=== PATIENT | female | born 1970 | race Caucasian/White ===

== ENCOUNTER 2018-01-17 17:18 | Inpatient (IN) | payer OTHER ==
[~2018-01-17] VITALS: Ht 172.7 cm; Wt 62.6 kg
[~2018-01-17 17:18] MED LIST: CIPRO 500MG TA500 MG PO; FLAGYL 25O MG250 M1 PO; METFORMIN ER500 MG PO; METFORMIN HCL500 M4 PO; METRONIDAZOLE500 MG PO; MONTELUKAST SOD10 MG PO; MULTI VITAMINS1 TAB PO; PERCOCET 325 MG1 TA2 PO; PERCOCET 5-3251 EACH PO; SYNTHROID25 MCG PO; VITAMIN D250000 UNIT PO; ZOFRAN4 M1 SL; ZYRTEC10 MG PO
[2018-01-17 18:38] LABS: ABSOLUTE BASOPHIL COUNT 0 /CUMM (0.0-0.2); ABSOLUTE EOSINOPHIL COUNT 0.1 /CUMM (0.0-0.7); ABSOLUTE GRANULOCYTE CT 6.5 /CUMM (1.4-6.5); ABSOLUTE LYMPH COUNT 2.5 /CUMM (1.2-3.4); ABSOLUTE MONOCYTE COUNT 0.7 /CUMM (0.10-0.60); BASOPHIL % 0.4 % (0.0-2.0); EOSINOPHIL % 0.8 % (0-5); GRANULOCYTE % 66.2 % (42.2-75.2); HEMATOCRIT 41.5 % (37-47); MEAN CORPUSCULAR HGB 29.4 PG (27.0-31.0); MEAN CORPUSCULAR HGB CONC 34.5 G/DL (33.0-37.0); MEAN CORPUSCULAR VOLUME 85.1 FL (81.0-99.0); MEAN PLATELET VOLUME 8.4 FL (7.4-10.4); PLATELET COUNT 307 /CUMM (130-400); RBC DISTRIBUTION WIDTH 13.3 % (11.5-14.5); RED BLOOD CELL CT 4.88 /CUMM (4.20-5.40); WHITE BLOOD CELL COUNT 9.8 /CUMM (4.8-10.8)
--- NOTE | 2018-01-17 19:28 | CT SCAN REPORT ---
EXAMINATION: CT ABDOMEN AND PELVIS WITH CONTRAST CLINICAL INFORMATION: Left lower quadrant pain COMPARISON: None. TECHNIQUE: Multidetector volumetric imaging was performed from the superior aspect of the liver through the pubic symphysis following administration of 95 ml of Optiray 320 Sagittal and coronal reformatted images were obtained on the technologist workstation. DLP: 630 mGy-cm FINDINGS: LUNG BASES: Minimal dependent atelectasis LIVER, GALLBLADDER, AND BILIARY TREE: The liver is normal in size, shape, and attenuation. No focal hepatic lesion or biliary ductal dilatation is present. The gallbladder is unremarkable with no evidence of radiopaque gallstones, gallbladder wall thickening, or obvious pericholecystic inflammatory changes. PANCREAS: Unremarkable. SPLEEN: Unremarkable. ADRENAL GLANDS: Unremarkable. KIDNEYS AND URETERS: The kidneys are normal in size, shape, and attenuation. No hydronephrosis, hydroureter, or calculi seen. No perinephric stranding. BLADDER: Unremarkable. GASTROINTESTINAL TRACT: There is scattered colonic diverticulosis more so in the sigmoid colon. There is mild pericolonic inflammatory change along the proximal sigmoid colon suggesting focal diverticulitis in this area. No obstructive changes. No discrete drainable collection. The appendix is likely surgically absent. Visualized small bowel unremarkable. ABDOMINAL WALL: No significant hernia is appreciated. LYMPHOVASCULAR STRUCTURES: No lymphadenopathy. The aorta is unremarkable. PELVIC VISCERA: Surgically absent OSSEOUS STRUCTURES: Degenerative changes in the lower lumbar spine IMPRESSION: Scattered colonic diverticulosis more so in the sigmoid colon. There is new focal pericolonic inflammatory changes along the proximal sigmoid colon suggesting mild focal diverticulitis. No discrete pericolonic abscess or drainable collection. No free air.
--- NOTE | 2018-01-17 19:32 | ED GI/GU/ABDOMINAL COMPLAINT ---
History of Present Illness General Chief Complaint: Abdominal Pain/Flank Pain Stated Complaint: LEFT SIDE STOMACH PAIN Source: patient, old records Exam Limitations: no limitations Vital Signs & Intake/Output Vital Signs & Intake/Output Vital Signs Date Time Temp Pulse Resp B/P B/P Pulse O2 O2 Flow FiO2 Mean Ox Delivery Rate 01/17 1726 98.5 98 16 115/82 97 Room Air Allergies Coded Allergies: NO KNOWN ALLERGIES (07/14/16) Reconcile Medications Ergocalciferol (Vitamin D2) (Vitamin D2) 50,000 UNIT CAPSULE 1 CAP PO Q30D SUPPLEMENT (Reported) Levothyroxine Sodium (Synthroid) 25 MCG TABLET 1 TAB PO DAILY AC THYROID ( Reported) Metformin HCl (Metformin HCl ER) 500 MG TAB.ER.24H 1 TAB PO DAILY DIABETES ( Reported) Oxycodone HCl/Acetaminophen (Percocet 5-325 MG Tablet) 1 EACH TABLET 1 TAB PO Q4P PRN PAIN SCALE 1-3 Triage Note: PT STATES SHE IS HAVING LEFT LOWER ABD PAIN SINCE LAST DAVIN. PT STATES SHE HAS NAUSEA BUT HAS NOT VOMITED. PT WITH HX OF DIVERTICULITIS Triage Nurses Notes Reviewed? yes ? N Is pt currently ? No HPI: Patient states that all day yesterday she just did not feel well and was anorexic. Yesterday evening she developed a pain in her left lower quadrant. Patient cannot really describe the pain other than stating that it hurts. The pain has kept her up all night and then lasted throughout the day. She states that earlier today the pain started to feel a little bit better but did not go away so she tried to eat something but approximately 10 minutes after eating the pain came back and was worse than it was even yesterday. Currently the pain is 10 out of 10. Patient states that any movement and especially walking makes the pain worse. The pain also worsens when she pushes anywhere in her abdomen. Patient has noticed that when she pushes on her abdomen the pain intensifies in the left lower quadrant. She feels very nauseous but has not vomited. There is no diarrhea. She had a normal bowel movement yesterday. She denies any dysuria. There are no fevers or chills. Patient was admitted once before for diverticulitis and states that this pain is reminiscent of that. Past History Travel History Traveled to [place] past 21 day No Medical History Any Pertinent Medical History? 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 No Review of Systems Review of Systems Constitutional: Reports: no symptoms. EENTM: Reports: no symptoms. Respiratory: Reports: no symptoms. Cardiovascular: Reports: no symptoms. GI: Reports: see HPI, abdominal pain, nausea. Genitourinary: Reports: no symptoms. Musculoskeletal: Reports: no symptoms. Skin: Reports: no symptoms. Neurological/Psychological: Reports: no symptoms. Hematologic/Endocrine: Reports: no symptoms. Immunologic/Allergic: Reports: no symptoms. All Other Systems: Reviewed and Negative Physical Exam Physical Exam General Appearance: well developed/nourished, alert, awake, moderate distress Head: atraumatic Eyes: Bilateral: PERRL, EOMI. Ears, Nose, Throat, Mouth: hearing grossly normal, DRY MUCOSA Neck: normal inspection, supple, full range of motion Respiratory: normal breath sounds, chest non-tender, no respiratory distress, lungs clear Cardiovascular: regular rate/rhythm, normal peripheral pulses Gastrointestinal: TENDER IN LLQ WITH REBOUND AND GUARDING Back: normal inspection, normal range of motion Extremities: normal range of motion Neurologic/Psych: no motor/sensory deficits, awake, alert, oriented x 3, normal mood/affect Skin: intact, normal color, warm/dry Core Measures ACS in differential dx? No Sepsis Present: No Sepsis Focused Exam Completed? No Progress Differential Diagnosis: bowel obstruction, diverticulitis, ischemic bowel, inflamm bowel dis, pancreatitis, UTI/pyelo Plan of Care: Orders Procedure Date/time Status Clear Liquid Diet 01/18 B Active ED Holding Orders 01/18 1944 Active Admit to inpatient 01/18 1944 Active Vital Signs 01/18 1944 Active Code Status 01/18 1944 Active URINALYSIS 01/17 1726 Active LACTIC ACID 01/17 1726 Complete COMPREHENSIVE METABOLIC PANEL 01/17 1726 Complete CBC WITHOUT DIFFERENTIAL 01/17 1726 Complete Current Medications Sig/Angel Start time Last Medication Dose Stop Time Status Admin Ampicillin Sodium/ 3,000 MG ONCE ONE 01/17 1945 AC Sulbactam Sodium 01/17 2014 (Unasyn) Sodium Chloride 100 ML (Normal Saline 0.9%) Laboratory Tests 01/17/18 1830: Anion Gap 12, Estimated GFR > 60, BUN/Creatinine Ratio 14.3, Glucose 96, Lactic Acid 1.4, Calcium 9.5, Total Bilirubin 0.5, AST 30, ALT 33, Alkaline Phosphatase 51, Total Protein 7.0, Albumin 4.3, Globulin 2.7, Albumin/Globulin Ratio 1.6, CBC w Diff NO MAN DIFF REQ, RBC 4.88, MCV 85.1, MCH 29.4, MCHC 34.5, RDW 13.3, MPV 8.4, Gran % 66.2, Lymphocytes % 25.4, Monocytes % 7.2, Eosinophils % 0.8, Basophils % 0.4, Absolute Granulocytes 6.5, Absolute Lymphocytes 2.5, Absolute Monocytes 0.7 H, Absolute Eosinophils 0.1, Absolute Basophils 0 Diagnostic Imaging: Viewed by Me: CT Scan. Discussed w/RAD: CT Scan. Radiology Impression: PATIENT: KAREN LOPEZ PRESENT AGE: 47 PATIENT ACCOUNT NO: [id number] : 69 LOCATION: [facility] ORDERING PHYSICIAN: Thomas LEONG SERVICE DATE: 01/17/18 EXAM TYPE: CAT - CT ABD & PELVIS W IV CONTRAST EXAMINATION: CT ABDOMEN AND PELVIS WITH CONTRAST CLINICAL INFORMATION: Left lower quadrant pain COMPARISON: None. TECHNIQUE: Multidetector volumetric imaging was performed from the superior aspect of the liver through the pubic symphysis following administration of 95 ml of Optiray 320 Sagittal and coronal reformatted images were obtained on the technologist workstation. DLP: 630 mGy-cm FINDINGS: LUNG BASES: Minimal dependent atelectasis LIVER, GALLBLADDER, AND BILIARY TREE: The liver is normal in size, shape, and attenuation. No focal hepatic lesion or biliary ductal dilatation is present. The gallbladder is unremarkable with no evidence of radiopaque gallstones, gallbladder wall thickening, or obvious pericholecystic inflammatory changes. PANCREAS: Unremarkable. SPLEEN: Unremarkable. ADRENAL GLANDS: Unremarkable. KIDNEYS AND URETERS: The kidneys are normal in size, shape, and attenuation. No hydronephrosis, hydroureter, or calculi seen. No perinephric stranding. BLADDER: Unremarkable. GASTROINTESTINAL TRACT: There is scattered colonic diverticulosis more so in the sigmoid colon. There is mild pericolonic inflammatory change along the proximal sigmoid colon suggesting focal diverticulitis in this area. No obstructive changes. No discrete drainable collection. The appendix is likely surgically absent. Visualized small bowel unremarkable. ABDOMINAL WALL: No significant hernia is appreciated. LYMPHOVASCULAR STRUCTURES: No lymphadenopathy. The aorta is unremarkable. PELVIC VISCERA: Surgically absent OSSEOUS STRUCTURES: Degenerative changes in the lower lumbar spine IMPRESSION: Scattered colonic diverticulosis more so in the sigmoid colon. There is new focal pericolonic inflammatory changes along the proximal sigmoid colon suggesting mild focal diverticulitis. No discrete pericolonic abscess or drainable collection. No free air. DICTATED BY: Ben Irving MD DATE/TIME DICTATED:01/17/181920 BURLAPPER:IRAIS DATE/TIME TRANSCRIBED:1920 CONFIDENTIAL, DO NOT COPY WITHOUT APPROPRIATE AUTHORIZATION. < Electronically signed in Other Vendor System> SIGNED BY: Ben Irving MD 01/17/181927 Initial ED EKG: none Departure Departure Disposition: STILL A PATIENT Condition: Guarded Clinical Impression Primary Impression: Diverticulitis large intestine Referrals: Jerzy Jim MD (PCP/Family) Departure Forms: Customer Survey General Discharge Information Admission Note Spoke With: Delia Condon MD Documentation of Exam: Documentation of any treatments & extenuating circumstances including Concerns Regarding Discharge (functional status, medication knowledge or non-compliance, living conditions, etc.) that warrant an admission rather than observation: [ Patient has diverticulitis and has peritoneal signs on exam. Patient is at high risk of having a microperforation. Patient will need admission for IV antibiotics, GI consultation, clear liquid diet, pain control]
--- NOTE | 2018-01-17 20:17 | History & Physical ---
Jhonathan Kuhn 01/17/18 2016: General Information and HPI MD Statement: I have seen and personally examined KAREN LOPEZ and documented this H&P. The patient is a 47 year old F who presented with a patient stated chief complaint of [left sided stomach pain]. Source of Information: patient Exam Limitations: no limitations History of Present Illness: Patient is a 47-year-old female with a PMH of diabetes mellitus, hypothyroidism, history of diverticulitis who presents to the ED with 2 days of worsening left lower quadrant pain, tenderness, anorexia, and nausea. Patient describes the pain as starting in the umbilical area, sharp in nature with a feeling of being bloated. She felt like it was gas pain except much more severe. She also recalls this discomfort being similar previous episode of diverticulitis. Pain is worse with coughing, breathing, moving, and especially getting up from bed. Any pressure on her abdomen elicits tenderness but mostly in the LLQ. So far nothing other than lying still has relieved her pain. At home she did not try pain medications. This 2 day episode was also associated with nausea but she denies vomiting. She denies any diarrhea but has noticed some blood-streaked stool. Yesterday she sat on the toilet 12 times just trying to pass one bowel movement, she finally passed a normal bowel movement. She endorses having chills, nausea, malaise. She denies palpitations, diaphoresis, shortness of breath, chest pain, dysuria, or joint pain. She denies any sick contacts or eating any foods out of the norm. Allergies/Medications Allergies: Coded Allergies: NO KNOWN ALLERGIES (07/14/16) Home Med list Ergocalciferol (Vitamin D2) (Vitamin D2) 50,000 UNIT CAPSULE 1 CAP PO Q30D SUPPLEMENT (Reported) Levothyroxine Sodium (Synthroid) 25 MCG TABLET 1 TAB PO DAILY AC THYROID ( Reported) Metformin HCl (Metformin HCl ER) 500 MG TAB.ER.24H 1 TAB PO DAILY DIABETES ( Reported) Oxycodone HCl/Acetaminophen (Percocet 5-325 MG Tablet) 1 EACH TABLET 1 TAB PO Q4P PRN PAIN SCALE 1-3 Past History Travel History Traveled to [place] past 21 day No Medical History Neurological: NONE EENT: NONE Cardiovascular: NONE Respiratory: NONE Gastrointestinal: diverticulitis Hepatic: NONE Renal: NONE Musculoskeletal: NONE Psychiatric: NONE, anxiety Endocrine: diabetes Blood Disorders: NONE Cancer(s): NONE 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 spouse Services at Home: None Primary Language: Portuguese ETOH Use: occasional use Illicit Drug Use: denies illicit drug use Living Will? unknown Review of Systems Review of Systems Constitutional: Reports: chills, malaise. Denies: diaphoresis, weakness, unexplained weight loss. EENTM: Reports: no symptoms. Cardiovascular: Denies: chest pain, palpitations. Respiratory: Denies: cough, short of breath. GI: Reports: abdominal pain, bloating, constipation, nausea, bloody stool, vomiting. Genitourinary: Denies: dysuria, frequency, hematuria. Musculoskeletal: Reports: no symptoms. Skin: Reports: no symptoms. Neurological/Psychological: Reports: no symptoms. Hematologic/Endocrine: Reports: no symptoms. Immunologic/Allergic: Reports: no symptoms. All Other Systems: Reviewed and Negative Exam & Diagnostic Data Last 24 Hrs of Vital Signs/I&O Vital Signs Date Time Temp Pulse Resp B/P B/P Pulse O2 O2 Flow FiO2 Mean Ox Delivery Rate 01/17 2140 98.9 90 18 120/82 98 Room Air 01/17 1726 98.5 98 16 115/82 97 Room Air Intake & Output 01/18 0800 01/18 0000 01/17 1600 Intake Total 1000 Output Total Balance 1000 Intake, IV 1000 Patient 198 lb Weight Weight Reported by Patient Measurement Method Physical Exam General Appearance Alert, Oriented X3, Cooperative, No Acute Distress Skin No Rashes Skin Temp/Moisture Exam: Warm/Dry Sepsis Skin Exam (color): Normal for Ethnicity HEENT Atraumatic, PERRLA, EOMI Neck Supple Lymphatic Axillary nl, Cervical nl Cardiovascular Regular Rate, Normal S1, Normal S2 Lungs Clear to Auscultation Abdomen Soft, Decreased bowel sounds, Tenderness Left Lower Quadrant, LLQ rebound and guarding Extremities Normal Pulses Last 24 Hrs of Labs/Leonides: Laboratory Tests 01/17/18 2245: Urine Color YEL, Urine Clarity CLEAR, Urine pH 6.5, Ur Specific [place] <= 1.005 , Urine Protein NEG, Urine Ketones NEG, Urine Nitrite NEG, Urine Bilirubin NEG, Urine Urobilinogen 0.2, Ur Leukocyte Esterase NEG, Ur Microscopic EXAM NOT REQUIRED, Urine Hemoglobin NEG, Urine Glucose NEG 01/17/182025: Lactic Acid Cancelled 01/17/181829: Anion Gap 12, Estimated GFR > 60, BUN/Creatinine Ratio 14.3, Glucose 96, Lactic Acid 1.4, Calcium 9.5, Total Bilirubin 0.5, AST 30, ALT 33, Alkaline Phosphatase 51, Total Protein 7.0, Albumin 4.3, Globulin 2.7, Albumin/Globulin Ratio 1.6, CBC w Diff NO MAN DIFF REQ, RBC 4.88, MCV 85.1, MCH 29.4, MCHC 34.5, RDW 13.3, MPV 8.4, Gran % 66.2, Lymphocytes % 25.4, Monocytes % 7.2, Eosinophils % 0.8, Basophils % 0.4, Absolute Granulocytes 6.5, Absolute Lymphocytes 2.5, Absolute Monocytes 0.7 H, Absolute Eosinophils 0.1, Absolute Basophils 0 Assessment/Plan Assessment: Anion Gap 12, Estimated GFR > 60, BUN/Creatinine Ratio 14.3, Glucose 96, Lactic Acid 1.4, Calcium 9.5, Total Bilirubin 0.5, AST 30, ALT 33, Alkaline Phosphatase 51, Total Protein 7.0, Albumin 4.3, Globulin 2.7, Albumin/Globulin Ratio 1.6, CBC w Diff NO MAN DIFF REQ, RBC 4.88, MCV 85.1, MCH 29.4, MCHC 34.5, RDW 13.3, MPV 8.4, Gran % 66.2, Lymphocytes % 25.4, Monocytes % 7.2, Eosinophils % 0.8, Basophils % 0.4, Absolute Granulocytes 6.5, Absolute Lymphocytes 2.5, Absolute Monocytes 0.7 H, Absolute Eosinophils 0.1, Absolute Basophils 0 CBC and BMP unremarkable. IMPRESSION (CT ABDOMEN AND PELVIS WITH CONTRAST): Scattered colonic diverticulosis more so in the sigmoid colon. There is new focal pericolonic inflammatory changes along the proximal sigmoid colon suggesting mild focal diverticulitis. No discrete pericolonic abscess or drainable collection. No free air. Problem List: 1. Colonic Diverticulitis - Admit to general medicine floor (high risk of perforation evidenced by rebound and guarding on PE) - Keep NPO overnight, then clears, and advance as tolerated - Start ceftriaxone and Flagyl - Gentle IV hydration if unable to tolerate PO - Pt has stopped taking levothyroxine and metformin, for her hypothyrodism and DM respectively, as she has believes these conditions have resolved (by lab values) - DVT ppx (ALPS and SubQ Heparin) - Patient is full code As Ranked By This Provider Problem List: 1. Diverticulitis large intestine 2. Abdominal pain Core Measures/Misc (03/28) Acute Coronary Syndrome ACS Diagnosis: No Congestive Heart Failure Congestive Heart Failure Diagnosis No Cerebrovascular Accident CVA/TIA Diagnosis: No VTE (View Protocol) VTE Risk Factors Age>40 No Mechanical VTE Prophylaxis d/t N/A MechProphylax Ordered No VTE Pharm Prophylaxis d/t NA PharmProphylax ordered Sepsis (View protocol) Sepsis Present: No If YES complete Sepsis Event Note If YES complete Sepsis Event Note Skyler GRAVESLisandra 01/17/182037: Core Measures/Misc (03/28) Sepsis (View protocol) If YES complete Sepsis Event Note If YES complete Sepsis Event Note Resident Review Statement Resident Statement: examined this patient, discussed with media relations intern, agreed with media relations intern, reviewed EMR data (avail), discussed with nursing, reviewed images Other Findings: Ms. Moody is a 47-year-old lady with past medical history significant for diverticulitis, NIDDM, hypothyroidism and fibroids presents with abdominal pain. According to patient, she was not feelling good for the past 1 week, yesterday had severe gurgling in her belly and at night started having sudden severe abdominal pain mainly in the left side. She continued to have the abdominal pain all night, described to this or worse gas pain, sharp 10/10 in intensity without any radiation. Pain worse worse with movement and deep breathing. The only thing that helped with the pain was laying still. She also felt nauseous but denies any vomiting. Also reports chills without any fevers, but states she fell off. States she went to the toilet 12 times last night but nothing came out episode except for an episode of mucous with streaks of blood per rectum. She also felt her abdomen was bloated and tender mostly on the left side. Denies any diarrhea/constipation, sick contacts or recent travel. Vital signs examination were temperature of 98.5, heart rate 98, respiratory rate 16, BP 115/82 and oxygen saturation 97% on room air. Patient had significant abdominal tenderness with rebound tenderness and guarding on examination. She had an unremarkable CBC and BEP. Urinalysis pending. CT abdomen and pelvis with contrast showed Scattered colonic diverticulosis more so in the sigmoid colon with new focal pericolonic inflammatory changes along the proximal sigmoid colon suggesting mild focal diverticulitis. Problem list; 1. Diverticulitis with signs of Peritonitis 2. Hx of NIDDM not on medication 3. History of hypothyroidism not on medication - Admit the patient to general medicine floor - Start the patient on ceftriaxone and Flagyl - Serial abdominal exams - Keep NPO, advance diet as tolerated. - Gentle IV fluids - Patient has Hx of hypothyroidism and DM but stopped taking levothyroxine and Metformin, currently on some supplements. Says her labs are okay on current supplements. DVT prophylaxis; Alps and subcutaneous Lovenox Patient is full code Delia Condon MD 01/17/18 2302: Core Measures/Misc (03/28) Sepsis (View protocol) If YES complete Sepsis Event Note If YES complete Sepsis Event Note Attending MD Review Statement Attending Statement Attending MD Statement: examined this patient, discuss w/resident/PA/BUS GIRL, agreed w/resident/PA/BUS GIRL, reviewed EMR data (avail) Attending Assessment/Plan: 47F PMH T2DM, hypothyroidism, history of diverticulitis presenting with 2 days of worsening LLQ pain, no radiating, with abdominal tenderness. Symptoms are consistent with prior diverticulitis. No diarrhea or bloody stools. Afebrile, normal WBC, normal renal function. Imaging shows sigmoid diverticulitis without perforation or abscess. Exam shows guarding and rebound tenderness, otherwise well. 1. Acute sigmoid diverticulitis 2. Peritonitis Plan - Admit to general medicine - Ceftriaxone and Flagyl - NPO - IV hydration - Pain control - Advance diet as tolerated - Continue home medications - DVT PPx
--- NOTE | 2018-01-17 23:05 | Admission Certification ---
Admission Certification Certification Statement - As attending physician, I certify that at the time of - admission, based on clinical presentation, severity of - symptoms, need for further diagnostic testing and - therapeutic interventions, and risk of adverse outcomes - without in-hospital treatment, in my clinical assessment, - this patient requires an acute hospital stay for a minimum - of two nights or longer. I have also considered psychsocial - factors such as support system, advanced age, financial - issues, cognitive issues, and failed out-patient treatments, - past re-admission history, safety of patient, and lack of - compliance as applicable. Specific rationale supporting this admission is: Acute diverticulitis with signs of peritonitis
[2018-01-18 06:12] LABS: ABSOLUTE BASOPHIL COUNT 0 /CUMM (0.0-0.2); ABSOLUTE EOSINOPHIL COUNT 0.1 /CUMM (0.0-0.7); ABSOLUTE GRANULOCYTE CT 5.9 /CUMM (1.4-6.5); ABSOLUTE LYMPH COUNT 2.3 /CUMM (1.2-3.4); ABSOLUTE MONOCYTE COUNT 0.8 /CUMM (0.10-0.60); BASOPHIL % 0.3 % (0.0-2.0); EOSINOPHIL % 1.2 % (0-5); GRANULOCYTE % 64.9 % (42.2-75.2); HEMATOCRIT 37.5 % (37-47); MEAN CORPUSCULAR HGB 29.2 PG (27.0-31.0); MEAN CORPUSCULAR HGB CONC 34.1 G/DL (33.0-37.0); MEAN CORPUSCULAR VOLUME 85.5 FL (81.0-99.0); MEAN PLATELET VOLUME 8.2 FL (7.4-10.4); PLATELET COUNT 247 /CUMM (130-400); RBC DISTRIBUTION WIDTH 13.5 % (11.5-14.5); RED BLOOD CELL CT 4.39 /CUMM (4.20-5.40); WHITE BLOOD CELL COUNT 9.1 /CUMM (4.8-10.8)
--- NOTE | 2018-01-18 08:50 | PN- Housestaff ---
See Addendum Subjective Follow-up For: Diverticulitis Subjective: Patient was seen and examined at bedside. No acute events overnight. Afebrile. Patient states she is feeling better, her pain is currently 5/10, which she says is much improved from last night. Review of Systems Constitutional: Denies: chills, diaphoresis, fever. EENTM: Denies: blurred vision, double vision, throat pain. Cardiovascular: Denies: chest pain, palpitations. Respiratory: Denies: cough, short of breath. Gastrointestinal: Reports: abdominal pain. Denies: constipation, diarrhea, melena, bloody stool. Objective Last 24 Hrs of Vital Signs/I&O Vital Signs Date Time Temp Pulse Resp B/P B/P Pulse O2 O2 Flow FiO2 Mean Ox Delivery Rate 01/18 0604 98.7 84 20 106/56 96 Room Air 01/17 2140 98.9 90 18 120/82 98 Room Air 01/17 1726 98.5 98 16 115/82 97 Room Air Intake & Output 01/18 1600 01/18 0800 01/18 0000 Intake Total 1000 Output Total Balance 1000 Intake, IV 1000 Patient 198 lb Weight Weight Reported by Patient Measurement Method Physical Exam General Appearance: Alert, Oriented X3, Cooperative Skin: No Rashes HEENT: Atraumatic, PERRLA, EOMI Neck: Supple, No LAD Cardiovascular: Regular Rate, Normal S1, Normal S2 Lungs: Clear to Auscultation, Normal Air Movement Abdomen: Normal Bowel Sounds, Soft, LLQ is tender to palpation, no rebound tenderness or guarding present. Neurological: Normal Gait, Normal Speech, Strength at 5/5 X4 Ext Extremities: No Cyanosis, No Edema, Normal Pulses Vascular: Normal Pulses, Pulses Symmetrical Assessment/Plan Assessment: Ms. Butler is a 47 yoF with a PMHx of DMII, Hypothyroidism, and diverticulosis, she presented to the ED with worsening LLQ pain for the past 2 days. Pain is accompanied by tenderness, anorexia and nausea. #Diverticulitis Physical examination findings, CT findings are consistent with Diverticulitis. Afebrile, normal WBC. Plan: -on Clear liquid diet, advance as tolerated. -Jacinda. Ceftriaxone 1000mg Qdaily -Jacinda. Metronidazole 500mg Q8 DVT ppx: ALPS Diet: Clear Liquid Code: Full Code Problem List: 1. Diverticulitis Pain Ratin Pain Location: LLQ Pain Goal: Pain 4 or less Pain Plan: Oxycodone Tomorrow's Labs & Rationales: None
[2018-01-18 16:20] VITALS: BP 114/78
[2018-01-18 21:02] VITALS: BP 102/62
[2018-01-19 06:12] VITALS: BP 110/72
[2018-01-19] MEDS ORDERED: CIPRO500 M1 PO ×2 (07:45→10:51)
[2018-01-19] MEDS ORDERED: FLAGYL500 MG PO ×2 (07:45→10:51)
--- NOTE | 2018-01-19 07:46 | Patient Discharge Instructions ---
Discharge Instructions General Discharge Information You were seen/treated for: Diverticulitis Watch for these problems: Fever, chest pain, shortness of breath Special Instructions: Please take all medications as directed. Please follow-up with primary care. Diet Continue normal diet: No Recommended Diet: Low Residue Activity Full Activity/No Limits: Yes Acute Coronary Syndrome Inclusion Criteria At DC or during hospital stay patient has or had the following: ACS DIAGNOSIS No Discharge Core Measures Meds if any: Prescribed or Continued at Discharge Meds if any: NOT Prescribed or Continued at Discharge Congestive Heart Failure Inclusion Criteria At DC or during hospital stay patient has or had the following: CHF DIAGNOSIS No Discharge Core Measures Meds if any: Prescribed or Continued at Discharge Meds if any: NOT Prescribed or Continued at Discharge Cerebrovascular accident Inclusion Criteria At DC or during hospital stay patient has or had the following: CVA/TIA Diagnosis No Discharge Core Measures Meds if any: Prescribed or Continued at Discharge Meds if any: NOT Prescribed or Continued at Discharge Venous thromboembolism Inclusion Criteria VTE Diagnosis No VTE Type NONE VTE Confirmed by (Test) NONE Discharge Core Measures - Per Current guidelines, there needs to be overlap - treatment for the first 5 days of Warfarin therapy. - If discharged on Warfarin prior to 5 days of - overlap therapy, the patient will need to be - assessed for post discharge needs including - *Post discharge parental anticoagulation - *Warfarin and/or parental anticoagulation education - *Follow up date to check INR post discharge At least 5 days overlap therapy as Inpatient No Meds if any: Prescribed or Continued at Discharge Note: Overlap Therapy is Warfarin and Anticoagulant Meds if any: NOT Prescribed or Continued at Discharge
--- NOTE | 2018-01-19 08:27 | PN- Housestaff ---
Subjective Follow-up For: diverticulitis Subjective: Patient seen and examined in sitting chair, no acute events overnight. Afebrile. Patient is tolerating regular diet had eggs for breakfast this morning, denies nausea, vomiting, abdominal pain. Had one bowel movement earlier this morning. Review of Systems Constitutional: Denies: chills, diaphoresis, fever. Cardiovascular: Denies: chest pain. Respiratory: Denies: cough, short of breath. Gastrointestinal: Denies: abdominal pain, constipation, diarrhea, changes in stool. Objective Last 24 Hrs of Vital Signs/I&O Vital Signs Date Time Temp Pulse Resp B/P B/P Pulse O2 O2 Flow FiO2 Mean Ox Delivery Rate 01/19 0612 98.9 85 20 110/72 97 Room Air 01/18 2102 98.0 94 18 102/62 98 Room Air 01/18 1702 99.0 01/18 1620 98.4 90 96 114/78 18 01/18 1506 98.8 78 20 115/63 98 Room Air Intake & Output 01/19 1600 01/19 0800 01/19 0000 Intake Total 800 600 Output Total Balance 800 600 Intake, IV 600 300 Intake, Oral 200 300 Physical Exam General Appearance: Alert, Oriented X3, Cooperative Skin: No Rashes HEENT: Atraumatic, EOMI Cardiovascular: Regular Rate, Normal S1, Normal S2 Lungs: Clear to Auscultation, Normal Air Movement Abdomen: Normal Bowel Sounds, Soft, No Tenderness Extremities: No Cyanosis, No Edema, Normal Pulses Vascular: Normal Pulses, Pulses Symmetrical Assessment/Plan Assessment: Ms. Butler is a 47 yoF with a PMHx of DMII, Hypothyroidism, and diverticulosis, she presented to the ED with worsening LLQ pain for the past 2 days. Pain is accompanied by tenderness, anorexia and nausea. #Diverticulitis Physical examination findings, CT findings are consistent with Diverticulitis. Afebrile, normal WBC. Plan: -tolerating regular diet. -Jacinda. Ceftriaxone 1000mg Qdaily -Jacinda. Metronidazole 500mg Q8 DVT ppx: ALPS Diet: Regular Code: Full Code Will discharge patient home today. Discharge home on Ciprofloxacin 500 BID, Metronidazole 500 TID for 7 day course Problem List: 1. Diverticulitis Pain Ratin Pain Location: n/a Pain Goal: Remain pain free Pain Plan: n/a Tomorrow's Labs & Rationales: none
[2018-01-19] MEDS ORDERED: PERCOCET 5-3251 EACH PO (10:51)
== END 2018-01-19 12:37 | DRG 392 ==
LOC: ERH 17:18 → ERHI 19:44 → ENRESERV 01-18 12:11 → ENTRNSPT 01-18 15:36 → 2NA 01-18 15:57 → CMPTRNSPT 01-18 16:01 → 2NA 01-18 16:18 → ENPENDDIS 01-19 10:50 → 2NA 01-19 12:37
PROVIDERS: Internal Medicine; Physician Assistant
DX: K57.92 Diverticulitis of intestine, part unspecified, without perforation or abscess without bleeding (principal); E03.9 Hypothyroidism, unspecified; E11.8 Type 2 diabetes mellitus with unspecified complications
CPT/HCPCS: 2NAP; ERO; 74177; 81003; 96374; 96375; J0696; J1650; J1885; J2405; J7120